=== PATIENT | male | born 1970 | race Caucasian/White ===

== ENCOUNTER 2019-07-01 05:06 | Inpatient (IN) | payer MEDICAID ==
[2019-06-30 12:52] LABS: BASOPHILS # (AUTO) 0.1 X10'3 (0-0.2); BASOPHILS % (AUTO) 0.6 % (0-1); EOSINOPHILS # (AUTO) 0.3 X10'3 (0-0.9); EOSINOPHILS % (AUTO) 3.7 % (0-6); LYMPHOCYTES # (AUTO) 2.4 X10'3 (1.1-4.8); LYMPHOCYTES % (AUTO) 26.9 % (21-51); MEAN CORPUSCULAR HEMOGLOBIN 30.7 PG (27.0-31.0); MEAN CORPUSCULAR HGB CONC 33.7 g/dL (33.0-36.5); MEAN CORPUSCULAR VOLUME 91.3 FL (78-98); MEAN PLATELET VOLUME 9.4 FL (7.4-10.4); MONOCYTES # (AUTO) 0.8 X10'3 (0-0.9); MONOCYTES % (AUTO) 8.8 % (2-12); NEUTROPHILS # (AUTO) 5.3 X10'3 (1.8-7.7); PRE OP HEMATOCRIT 44.3 % (42.0-52.0); PRE OP HEMOGLOBIN 14.9 g/dL (14.0-17.9); PRE OP PLATELET COUNT 231 X10'3 (140-440); RED BLOOD COUNT 4.86 X10'6 (4.70-6.10); RED CELL DISTRIBUTION WIDTH 13.1 % (11.5-14.5)
[2019-06-30 12:53] LABS: CLARITY,URINE CLEAR (Clear); COLOR,URINE YELLOW (Yellow); GLUCOSE, URINE NEGATIVE (Neg); KETONES,URINE NEGATIVE (Neg); LEUKOCYTE ESTERASE ,URINE NEGATIVE (Neg); NITRITES, URINE NEGATIVE (Neg); OCCULT BLOOD,URINE NEGATIVE (Neg); PROTEIN,URINE NEGATIVE (Neg)
[2019-06-30 13:15] LABS: UA COLLECTION TYPE CLN CATCH MIDSTREAM
[2019-06-30 14:52] LABS: ALBUMIN 3.8 G/DL (3.4-5.0); ALKALINE PHOSPHATASE 89 IU/L (46-116); BLOOD UREA NITROGEN 12 MG/DL (7-18); CALCIUM 8.7 MG/DL (8.5-10.1); CHLORIDE 104 MMOL/L (99-107); CREATININE 0.92 MG/DL (0.60-1.10); PRE OP ALT 43 U/L (30-65); PRE OP ANION GAP 10 (8-16); PRE OP AST 27 U/L (10-37); PRE OP BILIRUB, TOTAL 0.5 MG/DL (0.0-1.0); PRE OP GLUCOSE 104 MG/DL (70-104); PRE OP POTASSIUM 4.2 MMOL/L (3.4-5.1); PRE OP SODIUM 140 MMOL/L (135-145); TOTAL CARBON DIOXIDE 26.2 MMOL/L (24-32); TOTAL PROTEIN 7.6 G/DL (6.4-8.2); eGFR 88 ML/MIN
[2019-07-01] VITALS (18 sets, daily range): BP systolic 137–177; BP diastolic 55–109
[~2019-07-01] VITALS: Ht 185.4 cm; Wt 118.1 kg
[~2019-07-01 05:06] MED LIST: NO HOME MEDS
[2019-07-01] MEDS ORDERED: LIDOcaine 1% (10mg/ml) 2ml vial ONE (05:44)
[2019-07-01] MEDS ORDERED: ceFAZolin 1000mg inj ONE (06:00)
[2019-07-01] MEDS ORDERED: BUPIVAcaine/PF 2.5 mg/ml (0.25%) 30ml vial ONE ×2 (06:00→08:49)
[2019-07-01] MEDS ORDERED: ceFOXitin 2 GM ADDvantage bag 100 ML IV ONE (06:25)
[2019-07-01] MEDS ORDERED: famotidine 20mg tablet PO ONE (06:25)
[2019-07-01] MEDS ORDERED: ceFOXitin sod/dextrose 2g/50ml 50 ML IV ONE (06:30)
[2019-07-01] MEDS: ringers solution, lacted 1,000 ML IV SCH ×3 (06:48→21:35)
[2019-07-01] MEDS ORDERED: ondansetron/PF 4mg/2ml inj ONE (06:55)
[2019-07-01] MEDS ORDERED: dexamethasone sod phosphate 10mg/ml inj ONE (06:55)
[2019-07-01] MEDS ORDERED: sevoflurane 250ml liquid IH ONE (06:55)
[2019-07-01] MEDS ORDERED: fentaNYL /PF 50mcg/ml 5ml ampule ONE (07:03)
[2019-07-01] MEDS ORDERED: midazolam 2 mg/2 ml injection ONE (07:03)
[2019-07-01] MEDS ORDERED: propofol inj 20 ML IV ONE ×2 (07:03→09:12)
[2019-07-01] MEDS ORDERED: LIDOcaine 2% (20mg/ml) 5ml vial ONE (07:03)
[2019-07-01] MEDS ORDERED: rocuronium 10mg/ml inj IV ONE ×2 (07:10→09:12)
[2019-07-01] MEDS ORDERED: ringers solution, lacted 1,000 ML IV SCH (08:20)
[2019-07-01] MEDS ORDERED: morphine 4 MG/ML inj SYRINge IV PRN ×2 (08:20)
[2019-07-01] MEDS ORDERED: ondansetron/PF 4mg/2ml inj IV PRN (08:20)
[2019-07-01] MEDS ORDERED: proCHLORperazine 10 MG/2 ml inj IV PRN (08:20)
[2019-07-01] MEDS ORDERED: meperidine/PF 25mg/ml syringe IV PRN ×3 (08:20)
[2019-07-01] MEDS ORDERED: BUPIVACAINE liposomal/PF 13.3 MG/ML vial IM ONE (08:49)
[2019-07-01] MEDS ORDERED: CADD PCA waste documentation MC PRN (08:50)
[2019-07-01] MEDS ORDERED: naloxone 0.4 mg/ml inj IV PRN (08:50)
--- NOTE | 2019-07-01 09:25 | NUR ---
Received from OR via BED , accompanied by Anesthesiologist DR DE LEON and report given by Anesthesiolgist, PATIENT WAKING UP, DENIES PAIN, V/S WNL, CSM INTACT, ABDOMEN DRESSING CDI , SCD ON, 18G PIV TO LUE, SCD ON, F/C DRAINING CLEAR PINKISH URINE RT STENT DURING SURGERY PER OR TEAM.
[2019-07-01] MEDS: HYDROmorphone/NS 1 mg/ml CADD 50 ML IV SCH ×8 (09:36→23:00)
--- NOTE | 2019-07-01 10:02 | NUR ---
RECEIVED REPORT FROM BALA PÉREZ. AWAITING PATIENT ARRIVAL TO ROOM 348A.
--- NOTE | 2019-07-01 10:15 | NUR ---
PATIENT A&OX4, DENIES PAIN, V/S WNL, CSM INTACT, ABDOMEN DRESSING CDI , SCD ON, 18G PIV TO LUE, SCD ON, F/C DRAINING CLEAR PINKISH URINE RT STENT DURING SURGERY PER OR TEAM. PATIENT TAKEN TO 348A WITH ALL BELONGINGS AND HOOKED UP TO MONITORS IN ROOM AND REPORT GIVEN TO RN WHO HAS TAKEN OVER PATIENT CARE.
--- NOTE | 2019-07-01 10:30 | NUR ---
RECEIVED PATIENT TO ROOM 348A. PATIENT IS ALERT AND ORIENTED X4. DENIES PAIN BUT DOES STATE HE HAS SOME "DISCOMFORT." EDUCATED PATIENT ON CADD PUMP USE. ABD DRESSING AND BAND AIDS CDI. THOMAS CATH DRAINING TO GRAVITY. PATIENT ORIENTED TO ROOM AND CALL LIGHT AND CALL LIGHT WITHIN PATIENT'S REACH, BED IS LOW AND LOCKED. POST OP VITALS INITIATED. FAMILY IS AT BEDSIDE.
--- NOTE | 2019-07-01 18:19 | NUR ---
Problems reprioritized. Patient report given, questions answered & plan of care reviewed with BALA Michel.
--- NOTE | 2019-07-01 18:30 | NUR ---
Patient in room [facility]. I have received report from Martha MCKENNA and had the opportunity to ask questions and assume patient care.
[2019-07-02] VITALS: BP 153/89
[2019-07-02] MEDS: HYDROmorphone/NS 1 mg/ml CADD 50 ML IV SCH ×5 (01:00→09:00)
--- NOTE | 2019-07-02 02:19 | NUR ---
Patient c/o that F/C was leaking. D/cd w/o any complications. 700cc U/O drained from F/C
[2019-07-02] MEDS ORDERED: ringers solution, lacted 1,000 ML IV SCH (05:00)
[2019-07-02] MEDS ORDERED: ceFOXitin 2 GM ADDvantage bag 100 ML IV ONE (05:30)
[2019-07-02] MEDS ORDERED: famotidine 20mg tablet PO ONE (05:30)
--- NOTE | 2019-07-02 06:30 | NUR ---
Problems reprioritized. Patient report given, questions answered & plan of care reviewed with Wan MCKENNA and Martha MCKENNA.
[2019-07-02 07:15] VITALS: BP 128/70
[2019-07-02] MEDS: enoxaparin 40mg/0.4ml syringe SQ SCH (08:00)
[2019-07-02 11:50] VITALS: BP 157/88
[2019-07-02] MEDS: ringers solution, lacted 1,000 ML IV SCH (14:37)
[2019-07-02] MEDS: HYDROcodone/acetaminophen 10/325mg tab PO PRN ×2 (14:38→21:25)
--- NOTE | 2019-07-02 18:20 | NUR ---
Patient in room [facility]. I have received report from Susan MCKENNA and Martha MCKENNA and had the opportunity to ask questions and assume patient care.
[2019-07-02 18:30] VITALS: BP 143/92
--- NOTE | 2019-07-02 18:45 | NUR ---
Problems reprioritized. Patient report given, questions answered & plan of care reviewed with Marilu MCKENNA.
[2019-07-03 00:24] VITALS: BP 130/89
--- NOTE | 2019-07-03 06:30 | NUR ---
Problems reprioritized. Patient report given, questions answered & plan of care reviewed with Susan Thomas RN.
[2019-07-03 07:54] VITALS: BP 126/89
[2019-07-03] MEDS: enoxaparin 40mg/0.4ml syringe SQ SCH (08:00)
[2019-07-03] MEDS: HYDROcodone/acetaminophen 10/325mg tab PO PRN (08:47)
[2019-07-03 11:47] VITALS: BP 152/87
[2019-07-03 12:57] VITALS: BP 152/87
--- NOTE | 2019-07-03 13:06 | NUR ---
Problems reprioritized. Patient report given, questions answered & plan of care reviewed with BALA Joseph.
--- NOTE | 2019-07-03 18:42 | NUR ---
Pt DC with all of his belonging, IV take out canula intact, all discharge questions answered, pt taken via wheel chair for mom to drive him home.
== END 2019-07-03 14:05 | disposition home or self-care (01) | DRG 231 ==
LOC: PAS IN 05:06 → EDSTATUS 07:00 → SUR 3N 08:46 → EDSTATUS 11:30
PROVIDERS: ADMIT Surgery; ATTEND Surgery
PROC: 3E0T3BZ Introduction of Anesthetic Agent into Peripheral Nerves and Plexi, Percutaneous Approach (ICD-10-PCS; 2019-07-01)
PROC: 0DTN4ZZ Resection of Sigmoid Colon, Percutaneous Endoscopic Approach (ICD-10-PCS; principal; 2019-07-01 06:55)
PROC: 0T9B80Z Drainage of Bladder with Drainage Device, Via Natural or Artificial Opening Endoscopic (ICD-10-PCS; 2019-07-01 06:55)
DX: C18.7 Malignant neoplasm of sigmoid colon (principal); E66.9 Obesity, unspecified; F12.90 Cannabis use, unspecified, uncomplicated; Z80.0 Family history of malignant neoplasm of digestive organs; Z68.34 Body mass index [BMI] 34.0-34.9, adult
CPT/HCPCS: 36415; 76000; 80053; 81003; 82948; 85025; 86885; 86900; 86901; 86920; 87081; 93005; A4215; A4355; A4618; A7000; C1758; C9290; G0378; J0690; J0694; J1100; J1170; J1650; J2001; J2250; J2405; J2704; J3010; J3490; J7120